=== PATIENT | female | born 1990 | race American Indian/Alaskan Native ===

== ENCOUNTER 2017-02-17 05:57 | Emergency (ER) | payer SELFPAY ==
[2017-02-17 06:29] LABS: Hematocrit 33.8 % (30.3-42.9); Hemoglobin 10.5 gm/dl (10.1-14.3); Mean Corpuscular HGB Conc 31 % (30-34); Platelet Count 387 K/mm3 (140-440); Red Blood Count 5.23 M/mm3 (3.65-5.03); White Blood Count 9.9 K/mm3 (4.5-11.0)
[2017-02-17 06:30] LABS: Mean Corpuscular Hemoglobin 20 pg (28-32); Mean Corpuscular Volume 65 fl (79-97); Red Cell Distribution Width 27.6 % (13.2-15.2)
[2017-02-17 06:45] LABS: Alanine Aminotransferase 14 units/L (7-56); Alkaline Phosphatase 83 units/L (35-129); Anion Gap 19 mmol/L; BUN/Creatinine Ratio 13.75; Blood Urea Nitrogen 11 mg/dL (7-17); Calcium 9.1 mg/dL (8.4-10.2); Carbon Dioxide 22 mmol/L (22-30); Chloride 101.3 mmol/L (98-107); Glucose 116 mg/dL (65-100); Potassium 3.9 mmol/L (3.6-5.0); Sodium 138 mmol/L (137-145)
[2017-02-17 08:18] LABS: Anisocytosis 3+; Blastocytes % (Manual) 0 %; Eosinophils % (Manual) 0 % (0.0-4.3)
[2017-02-17 08:19] LABS: Diff Status Complete; Hypochromasia 2+; Microcytosis 1+; Ovalocytes Few
[2017-02-17] MEDS ORDERED: TORADOL IV ONE (09:02)
[2017-02-17] MEDS ORDERED: ZOFRAN IV ONE (09:02)
[2017-02-17] MEDS ORDERED: ROCEPHIN/NS 1 GM/50 ML 1 GM/50 ML BAG IV ONE (09:02)
[2017-02-17] MEDS ORDERED: NACL 0.9% 1000 ML 1,000 ML IV ONE (09:02)
--- NOTE | 2017-02-17 09:06 | Emergency Department Report ---
ED Abdominal Pain HPI - General Chief Complaint: Abdominal Pain Stated Complaint: BACK PAIN/VOMITING Time Seen by Provider: 02/17/17 08:57 Source: patient Mode of arrival: Ambulatory Limitations: No Limitations - History of Present Illness Initial Comments: Ms. Bray is a 26 years old female had a normal vaginal delivery 3 weeks ago came today complaining of right flank pain started last night with excessive nausea and vomiting denied any vaginal bleeding no vaginal discharge no fever no other complaint. MD Complaint: abdominal pain, flank pain -: Last night Location: R flank Severity scale (0 -10): 6 - Related Data Previous Rx's Medication Instructions Recorded Last Taken Type Ondansetron [Zofran Odt] 4 mg PO Q8HR PRN #14 tab.rapdis 02/17/17 Unknown Rx oxyCODONE /ACETAMINOPHEN [Percocet 1 tab PO Q6HR PRN #14 tablet 02/17/17 Unknown Rx 5/325] Allergies Allergy/AdvReac Type Severity Reaction Status Date / Time No Known Allergies Allergy Verified 02/17/17 06:04 ED Review of Systems ROS: Stated complaint: BACK PAIN/VOMITING Other details as noted in HPI Comment: All other systems reviewed and negative Constitutional: denies: chills, fever Respiratory: denies: cough, orthopnea, shortness of breath Cardiovascular: denies: chest pain, palpitations Gastrointestinal: abdominal pain, nausea, vomiting. denies: diarrhea, constipation Musculoskeletal: back pain ED Past Medical Hx - Past Medical History Previous Medical History?: No - Surgical History Past Surgical History?: No - Social History Smoking Status: Never Smoker Substance Use Type: None - Medications Home Medications: Home Medications Medication Instructions Recorded Confirmed Last Taken Type Ondansetron [Zofran Odt] 4 mg PO Q8HR PRN #14 tab.rapdis 02/17/17 Unknown Rx oxyCODONE /ACETAMINOPHEN [Percocet 1 tab PO Q6HR PRN #14 tablet 02/17/17 Unknown Rx 5/325] ED Physical Exam - General Limitations: No Limitations General appearance: alert, in no apparent distress, other (appeared dehydrated patient is actively vomiting) - Head Head exam: Present: atraumatic - ENT ENT exam: Present: normal exam, mucous membranes dry - Neck Neck exam: Present: normal inspection. Absent: tenderness, meningismus, full ROM - Respiratory Respiratory exam: Present: normal lung sounds bilaterally. Absent: respiratory distress, wheezes, rales, rhonchi, chest wall tenderness - Cardiovascular Cardiovascular Exam: Present: regular rate, normal rhythm, normal heart sounds - GI/Abdominal GI/Abdominal exam: Present: soft. Absent: distended, tenderness, guarding, rebound, rigid, normal bowel sounds, diminished bowel sounds, hyperactive bowel sounds, hypoactive bowel sounds, organomegaly, mass, bruit, pulsatile mass, hernia - Back Exam Back exam: Present: normal inspection, CVA tenderness (R). Absent: CVA tenderness (L) - Neurological Exam Neurological exam: Present: alert, oriented X3, CN II-XII intact - Skin Skin exam: Present: warm, dry, intact ED Course Vital Signs 02/17/17 02/17/17 02/17/17 06:04 09:49 09:50 Temperature 97.9 F Pulse Rate 89 Respiratory 20 18 18 Rate Blood Pressure 124/74 O2 Sat by Pulse 100 100 Oximetry - Reevaluation(s) Reevaluation #1: 02/17/17 10:38 Patient stated that she is feeling much better, her pain is completely gone, informed the patient about the CT abdomen and pelvis results that show a right ureteric stone obstructing and that she needs to follow-up with his urologist as soon as possible. Patient understood and she stated that she will. ED Medical Decision Making - Lab Data Result diagrams: 02/17/17 06:13 02/17/17 06:13 Critical care attestation.: If time is entered above; I have spent that time in minutes in the direct care of this critically ill patient, excluding procedure time. ED Disposition Clinical Impression: Ureteric calculus, Acute right flank pain Disposition: DC-01 TO HOME OR SELFCARE Is pt being admited?: No Condition: Stable Instructions: Abdominal Pain (ED), Renal Colic (ED) Referrals: PRIMARY CARE, [Primary Care Provider] - 3-5 Days TRENA ALVAREZ MD [Staff Physician] - 3-5 Days
[2017-02-17] MEDS ORDERED: NACL ONE (09:17)
[2017-02-17 09:20] LABS: Bacteria,Urine 1+ /HPF (Negative); Bilirubin,Urine NEG (Negative); Blood,Urine NEG (Negative); Ketones,Urine NEG (Negative); Leukocyte Esterase,Urine TR (Negative); Mucus,Urine FEW /HPF; Nitrite,Urine NEG (Negative)
--- NOTE | 2017-02-17 10:19 | Cat Scan Report ---
CT scan of abdomen and pelvis with IV contrast: History: Left flank pain. Delivery 3 weeks back. Findings: Normal lung bases. No pleural or pericardial effusion. Normal limits enlarged spleen measures 13 cm. Normal pancreas. Normal gallbladder. Normal adrenals. There is dilatation noted of the right ureter and intrarenal collecting system due to calculus measuring 5 mm in diameter in the intrathoracic portion of the ureter. The left kidney and collecting system appears unremarkable. No free intraperitoneal fluid or. No evidence of adenopathy. No evidence of appendicitis or diverticulitis. Impression: Dilatation of intrarenal collecting system and right ureter due to distal obstruction from calculus.
[2017-02-17 12:23] VITALS: BP 123/77
== END 2017-02-17 12:35 | disposition home or self-care (01) ==
LOC: ED 05:57
DX: N20.1 Calculus of ureter (principal); R10.30 Lower abdominal pain, unspecified
CPT/HCPCS: 36415; 74177; 80053; 81001; 84703; 85007; 85025; 96361; 96365; 96375; 99284; J0696; J1885; J2405; J7030; Q9967

== ENCOUNTER 2019-05-08 09:32 | Emergency (ER) | payer MEDICAID ==
[2019-05-08 10:00] VITALS: BP 130/74
--- NOTE | 2019-05-08 10:37 | Emergency Department Report ---
ED Chest Pain HPI - General Chief Complaint: Chest Pain Stated Complaint: CHEST PAIN Time Seen by Provider: 05/08/19 10:19 Source: patient Mode of arrival: Ambulatory Limitations: No Limitations - History of Present Illness Initial Comments: This is a 28-year-old -[place] female who presents to the emergency room with chest pain since this morning. Patient states she was work when symptoms started. She reports pain as a tightness to chest radiating to left upper extremity. No significant past medical history. She denies palpitations, debra rtness of breath, lightheadedness, cough, fever, or chills. MD Complaint: chest pain -: This morning Onset: during exertion Pain Location: left chest Pain Radiation: LUE Severity: moderate Severity scale (0 -10): 6 Quality: tightness Consistency: intermittent Improves With: rest Worsens With: exertion re: denies: nausea, vomting, diaphoresis, dyspnea, sense of impending doom Other Symptoms: denies: cough, fever, syncope, rash, acid taste in mouth, leg swelling, palpitations, burping Treatments Prior to Arrival: none - Related Data Previous Rx's Medication Instructions Recorded Last Taken Type Ondansetron [Zofran Odt] 4 mg PO Q8HR PRN #14 tab.rapdis 02/17/17 Unknown Rx oxyCODONE /ACETAMINOPHEN [Percocet 1 tab PO Q6HR PRN #14 tablet 02/17/17 Unknown Rx 5/325] Allergies Allergy/AdvReac Type Severity Reaction Status Date / Time No Known Allergies Allergy Verified 02/17/17 06:04 Heart Score - HEART Score History: Slightly suspicious EKG: Normal Age: < 45 Risk factors: No known risk factors Troponin: < normal limit HEART Score: 0 - Critical Actions Critical Actions: 0-3 pts:0.9-1.7%risk of adverse cardiac event.Candidate for discharge ED Review of Systems ROS: Stated complaint: CHEST PAIN Other details as noted in HPI Constitutional: denies: chills, fever Respiratory: denies: cough, shortness of breath, wheezing Cardiovascular: chest pain. denies: palpitations Gastrointestinal: denies: abdominal pain, nausea, diarrhea Musculoskeletal: denies: back pain, joint swelling, arthralgia Skin: denies: rash, lesions Neurological: denies: headache, weakness, paresthesias ED Past Medical Hx - Past Medical History Previous Medical History?: No - Surgical History Past Surgical History?: No - Social History Smoking Status: Never Smoker Substance Use Type: None - Medications Home Medications: Home Medications Medication Instructions Recorded Confirmed Last Taken Type Ondansetron [Zofran Odt] 4 mg PO Q8HR PRN #14 tab.rapdis 02/17/17 Unknown Rx oxyCODONE /ACETAMINOPHEN [Percocet 1 tab PO Q6HR PRN #14 tablet 02/17/17 Unknown Rx 5/325] ED Physical Exam - General Limitations: No Limitations General appearance: alert, in no apparent distress - ENT ENT exam: Present: mucous membranes moist - Respiratory Respiratory exam: Present: normal lung sounds bilaterally. Absent: respiratory distress, wheezes, rales, rhonchi, stridor, chest wall tenderness - Cardiovascular Cardiovascular Exam: Present: regular rate, normal rhythm. Absent: systolic murmur, diastolic murmur, rubs, gallop - GI/Abdominal GI/Abdominal exam: Present: soft, normal bowel sounds - Neurological Exam Neurological exam: Present: alert, oriented X3, normal gait - Psychiatric Psychiatric exam: Present: normal affect, normal mood - Skin Skin exam: Present: warm, dry, intact, normal color. Absent: rash ED Course Vital Signs 05/08/19 09:58 Temperature 98.2 F Pulse Rate 93 H Respiratory 18 Rate Blood Pressure 130/74 O2 Sat by Pulse 100 Oximetry ED Medical Decision Making - EKG Data -: No EKG Interpreted by Me (EKG interpreted by attending) EKG shows normal: sinus rhythm Rate: normal - Radiology Data Radiology results: report reviewed Chest x-ray with no acute cardiopulmonary findings. - Medical Decision Making Patient was examined by me. Patient is nontoxic appearing and stable. Vitals are normal. Heart score 0. No reproducible chest wall pain. Obtained EKG and chest x-ray. EKG normal sinus rhythm with no STEMI elevation. Chest x-ray negative for acute cardiopulmonary findings. Patient reports symptoms for improved. Referral to cardiology for follow-up. Patient informed of results. Instructed to take Tylenol or ibuprofen for pain. Follow up with PCP as well or return to the emergency room with worsening symptoms. Patient discharged home in stable condition. Critical care attestation.: If time is entered above; I have spent that time in minutes in the direct care of this critically ill patient, excluding procedure time. ED Disposition Clinical Impression: Chest pain Qualifiers: Chest pain type: other chest pain Qualified Code(s): R07.89 - Other chest pain; R07.8 - Other chest pain Disposition: TO HOME OR SELFCARE Is pt being admited?: No Condition: Stable Instructions: Chest Pain (ED) Additional Instructions: Follow-up with the cardiology from the referrals list below. I have provided a list of primary care doctors as well free to follow-up with. Return to the emergency room if you have worsening symptoms such as increasing chest pain, radiating pain, difficulty breathing, or palpitations. Referrals: MOO HINSON MD [Staff Physician] - 3-5 Days [facility] [Provider Group] - 3-5 Days [facility] [Provider Group] - 3-5 Days Forms: Work/School Release Form(ED) Time of Disposition: 11:23
--- NOTE | 2019-05-08 11:00 | XRay Report ---
CHEST 2 VIEWS INDICATION: chest pain. COMPARISON: None FINDINGS: Support devices: None. Heart: Within normal limits. Lungs/pleura: No acute air space or interstitial disease. No pneumothorax. Additional findings: None. IMPRESSION: 1. No acute findings. Signer Name: Klever Myles MD Signed: 05/08/2019 10:55 AM Workstation Name: [id number]
== END 2019-05-08 11:48 | disposition home or self-care (01) ==
LOC: ED 09:32
DX: R07.89 Other chest pain (principal)
CPT/HCPCS: 71046; 93005; 93010